=== PATIENT | female | born 1985 | race Caucasian/White ===

== ENCOUNTER 2017-01-02 05:35 | Inpatient (IN) | payer OTHER ==
[~2017-01-02] VITALS: Ht 162.6 cm; Wt 95.3 kg
[~2017-01-02 05:35] MED LIST: LEVOTHYROXINE50 MCG PO
[2017-01-02] MEDS ORDERED: LEVOTHYROXINE75 MCG PO (10:40)
[2017-01-02] MEDS ORDERED: PRENATABS RX T1 EACH PO (10:41)
--- NOTE | 2017-01-03 08:34 | PN- OBGYN ---
Surgical Brief Attending Note Brief Attending Note: POD#1 pt is resting in bed, no complaints, tolerate diet, lozano d/c'd AM, flatus(+) PE: VSS CV RRR lungs CTA B/L Abdomen: soft, nontender, uterus firm, fundus below umbilicus, incision D/C/I, lochia mild Ext: DCT (-) A/P: 31yo, s/p RLTCS, POD #1 1.encouarge ambulation and 2. pain management as needed 3. RT PP care
[2017-01-03 09:11] LABS: ABSOLUTE BASOPHIL COUNT 0 /CUMM (0.0-0.2); ABSOLUTE EOSINOPHIL COUNT 0 /CUMM (0.0-0.7); ABSOLUTE GRANULOCYTE CT 5.6 /CUMM (1.4-6.5); ABSOLUTE LYMPH COUNT 2.2 /CUMM (1.2-3.4); ABSOLUTE MONOCYTE COUNT 0.5 /CUMM (0.10-0.60); BASOPHIL % 0.5 % (0.0-2.0); EOSINOPHIL % 0.4 % (0-5); GRANULOCYTE % 67.2 % (42.2-75.2); HEMATOCRIT 30.5 % (37-47); MEAN CORPUSCULAR HGB 29.1 PG (27.0-31.0); MEAN CORPUSCULAR VOLUME 87.9 FL (81.0-99.0); MEAN PLATELET VOLUME 7.8 FL (7.4-10.4); PLATELET COUNT 240 /CUMM (130-400); RBC DISTRIBUTION WIDTH 14.1 % (11.5-14.5); RED BLOOD CELL CT 3.47 /CUMM (4.20-5.40); WHITE BLOOD CELL COUNT 8.3 /CUMM (4.8-10.8)
--- NOTE | 2017-01-04 09:18 | PN- OBGYN ---
See Addendum Surgical Brief Attending Note Brief Attending Note: POD#2 pt is ambulating, no complaints. tolerate diet, void without difficulties. PE: VSS general NAD Abdomen:soft, nontender, uterus firm, fundus below umbilicus, incison D/C/I. lochia mild Ext: DCT (-) A/P: 31yo, s/p RLTCS+BTL, POD#2 1. encourage ambulation and 2. pt request circumcison for the baby, R/B/A of circumcision d/w pt, she understand. all questions answered , informed consent obtained. 3.RT PP care
[2017-01-04] MEDS ORDERED: PERCOCET 5-3251 EACH PO (14:19)
[2017-01-04] MEDS ORDERED: IBUPROFEN800 M1 PO (14:19)
--- NOTE | 2017-01-16 09:37 | Operative Report ---
Operative/Inv Procedure Report Surgery Date: 01/02/17 Name of Procedure: repear c/s Pre-Operative Diagnosis: pt desires repeat Post-Operative Diagnosis: same Estimated Blood Loss: scant (350) Surgeon/[employer] Driver: PATTIE AGUILERA,SETH Payton Anesthesia: block Monitors: fhr 144 bpm Complications: none Condition: good Operative Indication: pts desire Operative/Procedure Note Note: The patient was taken to the operating room for repeat low transverse section a Hodges catheter was placed in the bladder heart rates are 1 44 bpm in the left lower quadrant the abdomen was prepped the patient was placed in the left lateral tilt. The patient was grounded after checking for the adequacy of anesthesia a Pfannenstiel incision was made over the old incision. Incision was carried down sharply to the fascia which was incised in the midline sharply the incision was carried out laterally sharply. The fascia was then divided from the underlying rectus muscles in the superior and inferior direction sharply the rectus muscle bundles were divided in the midline sharply the peritoneum was entered well above the dome of the bladder in the midline sharply. The uterus was checked for any adhesions and there were none a bladder flap was created on the lower uterine segment. The lower uterine segment was entered in the midline bluntly and the incision carried out laterally bluntly. The was delivered from the vertex position through clear amniotic fluid the bora-pharynx was bulb suction and the cord was doubly clamped and cut the infant was handed to the pediatric attendant. The placenta was manually extracted the interior of the uterus was wiped clean with wet laps the uterus was externalized. The uterine incision was closed in 2 layers the first a running locking stitch and the second an imbricating over the first 0 Polysorb sutures were. Attention was turned to the right uterine tube which was followed to its fimbriated end the relatively avascular portion of tube was developed into a knuckle this was doubly tied with oh plain gut sharply divided and sent to pathology for examination both proximal and distal portions of tube were visualized and hemostasis was achieved with electrocautery. Attention was then turned to the left uterine tube which was followed to its fimbriated and a relatively avascular portion of the tube was developed into a knuckle this was sharply divided sent to pathology for examination doubly tied with oh plain gut both proximal and distal portion of tube were noted hemostasis achieved with electrocautery. The abdominal/peritoneal cavity was irrigated copiously the uterus was returned to its normal anatomical position the incision was once again checked for hemostasis which was judged to be excellent the parietal peritoneum was reapproximated in simple running fashion of 0 Polysorb suture. The fascia was reapproximated with 2 simple running 0 Polysorb sutures overlapping in the midline. Rabia's fascia was reapproximated with a 3-0 undyed Polysorb suture in a simple running fashion the skin was closed with a subcuticular 4-0 Polysorb. Sponge instrument and needle counts were correct 3 estimated blood loss was 350 mL there were no complications no drains left at the end of the procedure was a Hodges catheter to the bladder.
--- NOTE | 2017-01-16 09:40 | Surgical Discharge Summary ---
Visit Information Visit Dates Admission Date: 01/02/17 Discharge Date: 01/04/17 History of Present Illness Chief Complaint: repeat c/s with tubal ligation Medical History Neurological: NONE EENT: NONE Cardiovascular: NONE Respiratory: NONE Gastrointestinal: NONE Hepatic: NONE Renal: NONE Musculoskeletal: NONE Psychiatric: NONE Endocrine: hypothyroidism Isolation History: Standard Surgical History Pertinent Surgical History: non-contributory Psychosocial History What is Your Primary Language? Slovak Review of Systems: Patient denies nausea, vomiting, diarrhea, constipation, fevers, or chills. Hospital Course Course Attending Physician: PATTEI AGUILERA,SETH Franco Primary Care Physician: OCTAVIA AGUILERA,JOLIE Holman Hospital Course: The patient underwent section and tubal ligation with no complications. By postoperative day #1 the Hodges catheter was discontinued the patient was ambulating she was started on a clear liquid diet and was being toward well baby care as well as nursing. By postoperative day #2 the patient was tolerating a regular diet therefore her intravenous was discontinued. She was voiding well her incision was clean and dry she was demonstrating good knowledge of the incision care. Therefore she was discharged home on postoperative day #2 Complications: None Allergies: Coded Allergies: cephaloridine (Intermediate, HIVES 06/04/16) Penicillins (UNKNOWN 01/02/17) Uncoded Allergies: SEAFOOD (Severe, ANAPHYLAXIS 06/04/16) Disposition Summary Disposition Principal Diagnosis: Status post repeat section Additional Diagnosis: Tubal ligation Discharge Disposition: home or self care Discharge Instructions General Discharge Information Code Status: Full Code Patient's Diet: Regular Patient's Activity: No heavy lifting call immediately any fevers chills abdominal pain or leaking from the wound Follow-Up Instructions/Appts: Follow-up in the office in 1 week Medications at Discharge Discharge Medications: Continue taking these medications: Levothyroxine Sodium (Levothyroxine Sodium) 75 MCG TABLET 1 Tablet ORAL DAILY Vit #76/Iron,Carb/FA (Prenatabs Rx Tablet) 29 MG IRON-1 MG TABLET 1 Tablet ORAL DAILY Start taking the following new medications: Ibuprofen (Ibuprofen) 800 MG TABLET 800 Milligram ORAL EVERY SIX HOURS NEEDED as needed for UTERINE CRAMPING Qty = 30 No Refills Comments: Last Taken: Time: 01/04/17 at 1212 Oxycodone HCl/Acetaminophen (Percocet 5-325 MG Tablet) 5 MG-325 MG TABLET 2 Tablet ORAL EVERY 4 HOURS NEEDED as needed for PAIN SCALE 7-10 (SEVERE) Qty = 30 No Refills Comments: Last Taken: Time: 01/04/17 at 1212 Attending MD Review Statement Attending Statement Attending MD Statement: examined this patient, discussed with family, discussed w/nursing
== END 2017-01-04 15:35 | DRG 766 ==
LOC: GNO 05:35
PROVIDERS: Obstetrics & Gynecology; ADMIT Obstetrics & Gynecology
PROC: 10D00Z1 Extraction of Products of Conception, Low, Open Approach (ICD-10-PCS; principal; 2017-01-02)
PROC: 0UL70ZZ Occlusion of Bilateral Fallopian Tubes, Open Approach (ICD-10-PCS; 2017-01-02)
DX: O34.219 Maternal care for unspecified type scar from previous cesarean delivery (principal); E03.9 Hypothyroidism, unspecified; O99.284 Endocrine, nutritional and metabolic diseases complicating childbirth; Z37.0 Single live birth; Z3A.39 39 weeks gestation of pregnancy; Z30.2 Encounter for sterilization
CPT/HCPCS: GNOS; 87086; 88302; J1200; J1580; J1650; J1885; J7120